=== PATIENT | female | born 1970 | race Caucasian/White ===

== ENCOUNTER → 2021-01-01 | Outpatient (CLI) | payer OTHER ==
[~2021-01-01] MED LIST: FISH OIL 1,0001 EAC5 PO; FLAGYL500 MG PO; MOM; MULTIVITAMINS PO; NORCO 5-325 TA1 EACH; VICODIN 5-5001 EACH PO; VITAMIN D1000 UNI1 PO; ZYRTEC PO
== END ==
LOC: SJCVCIMAG 12:53
PROVIDERS: ATTEND Family Medicine
DX: I10 Essential (primary) hypertension (principal); E78.5 Hyperlipidemia, unspecified